=== PATIENT | male | born 1950 | race Two or more races ===

== ENCOUNTER 2017-12-07 19:30 | Emergency (ER) | payer OTHER ==
[2017-12-07 19:45] VITALS: BP 159/76; PULSE 72; TEMP 98.1; BMI 30.5
--- NOTE | 2017-12-07 19:47 | PDOC ---
Rapid Medical Evaluation Chief Complaint: Blood Pressure Problem Time Seen by Provider: 12/07/17 19:43 Medical Evaluation: 12/07/17 19:44 67 year old male with high blood pressure reading at home. patient denies any symptoms at this time other than burping. denies chest pain, diaPHORESIS, nausea , vomiting. PE: breath sounds clear, regular rate. A: high blood pressure P: EKG patient to the ER for further management of care. Discharge Disposition - Diagnosis High blood pressure Qualifiers: Hypertension type: essential hypertension Qualified Code(s): I10 - Essential ( primary) hypertension - Referrals - Patient Instructions - Post Discharge Activity
--- NOTE | 2017-12-07 19:54 | PDOC ---
History of Present Illness - General Chief Complaint: Blood Pressure Problem Stated Complaint: BLOOD PRESSURE Time Seen by Provider: 12/07/17 19:43 - History of Present Illness Initial Comments: 12/07/17 19:52 67 yo M with h/o HTN who p/w high blood pressure. Patient reports at home SBP 211 following new purchase of home/wrist BP monitoring cuff. BP typically 150's/ 80-90. Patient compliant with at home Bystolic and Lisinopril. Patient denies ALFARO, vision change, tinnitus, N/V, F,C, cough, palpitations, orthopnea, PND, leg swelling/pain, CP, SOB, urinary complaints, abdominal pain, diarrhea, constipation, lightheadedness, weakness, sensory changes. PMHx: as noted above. Denies h/o ACS/DC, stent placement, CABG, or abnml stress testing. ROS: as noted SHx: Denies Etoh, IVDA, tobacco. Allergies: NKDA Past History - Past Medical History Home Medications: Ambulatory Orders Aspirin 81 mg PO DAILY 12/07/17 Lisinopril [Prinivil -] 40 mg PO DAILY 12/07/17 Nebivolol HCl [Bystolic] 10 mg PO DAILY 12/07/17 COPD: No HTN: Yes - Suicide/Smoking/Psychosocial Hx Smoking History: Never smoked Review of Systems - Review of Systems Comments:: 12/07/17 19:52 GENERAL/CONSTITUTIONAL: No fever or chills. No weakness. HEAD, EYES, EARS, NOSE AND THROAT: No change in vision. No ear pain or discharge. No sore throat. CARDIOVASCULAR: No chest pain or shortness of breath RESPIRATORY: No cough, wheezing, or hemoptysis. GASTROINTESTINAL: No nausea, vomiting, diarrhea or constipation. GENITOURINARY: No dysuria, frequency, or change in urination. MUSCULOSKELETAL: No joint or muscle swelling or pain. No neck or back pain. SKIN: No rash NEUROLOGIC: No headache, vertigo, loss of consciousness, or change in strength/ sensation. ENDOCRINE: No increased thirst. No abnormal weight change HEMATOLOGIC/LYMPHATIC: No anemia, easy bleeding, or history of blood clots. ALLERGIC/IMMUNOLOGIC: No hives or skin allergy. *Physical Exam - Vital Signs Last Vital Signs Temp Pulse Resp BP Pulse Ox 98.1 F 72 18 159/76 96 12/07/17 19:43 12/07/17 19:43 12/07/17 19:43 12/07/17 19:43 12/07/17 19:43 - Physical Exam Comments: 12/07/17 19:52 GENERAL: Awake, alert, and fully oriented, in no acute distress HEAD: No signs of trauma, normocephalic, atraumatic EYES: PERRLA, EOMI, sclera anicteric, conjunctiva clear ENT: Auricles normal inspection, hearing grossly normal, nares patent, oropharynx clear without exudates. Moist mucosa NECK: Normal ROM, supple, no lymphadenopathy, JVD, or masses LUNGS: No distress, speaks full sentences, clear to auscultation bilaterally HEART: Regular rate and rhythm, normal S1 and S2, no murmurs, rubs or gallops, peripheral pulses normal and equal bilaterally. ABDOMEN: Soft, nontender, normoactive bowel sounds. No guarding, no rebound. No masses EXTREMITIES : Normal inspection, Normal range of motion, no edema. No clubbing or cyanosis. NEUROLOGICAL: Cranial nerves II through XII grossly intact. Normal speech, normal gait, no focal sensorimotor deficits SKIN: Warm, Dry, normal turgor, no rashes or lesions noted Medical Decision Making - Medical Decision Making 12/07/17 20:42 67 yo M with h/o HTN who p/w high blood pressure ( SBP 211) while at home. BP 159/76. VSS, AF, NAD, A&OX3. Patient currently asymptomatic with no evidence of end organ dysfunction on physical exam. Low suspicion HTN emergency/urgency, ACS /DC, pulm edema, CVA/TIA. ED Course: EKG: NSR with nml interval duration and axis. Absent DANE, STD, or TWI. 12/07/17 20:46 Patient BP improved and stable for d/c with return precautions. Advised to f/u with PMD. *DC/Admit/Observation/Transfer Diagnosis at time of Disposition: High blood pressure Qualifiers: Hypertension type: essential hypertension Qualified Code(s): I10 - Essential ( primary) hypertension - Discharge Dispostion Disposition: HOME Condition at time of disposition: Stable Decision to Admit order: No - Referrals - Patient Instructions Printed Discharge Instructions: DI for High Blood Pressure Additional Instructions: Please return to the emergency department with any new or worsening symptoms or concerns. Please follow up with your primary care physician within 72 hours. - Post Discharge Activity - Attestations Physician Attestion: 12/07/17 19:53 I attest to the information provided in this note.
--- NOTE | 2017-12-07 21:05 | PDOC ---
Attending Attestation - Resident Resident Name: Kartik Valencia - ED Attending Attestation I have performed the following: I have examined & evaluated the patient, The case was reviewed & discussed with the resident, I agree w/resident's findings & plan, Exceptions are as noted - HPI HPI: 12/07/17 21:03 Pt presents concerned about is BP since he bought a home BP cuff. Denies any chest pain or ALFARO or SOB - Physicial Exam PE: 12/07/17 21:04 Physical Exam General Appearance: Yes: Appropriately Dressed. No: Apparent Distress, Intoxicated HEENT: positive: EOMI, SANDOVAL, Normal ENT Inspection, Normal Voice, TMs Normal, Pharynx Normal. negative: Pale Conjunctivae, Photophobia, Scleral Icterus (R), Scleral Icterus (L) Neck: positive: Trachea midline, Normal Thyroid, Supple. negative: Tender, Rigid, Carotid bruit, Stridor, Lymphadenopathy (R), Lymphadenopathy (L), Thyromegaly Respiratory/Chest: positive: Lungs Clear, Normal Breath Sounds. negative: Chest Tender, Respiratory Distress, Accessory Muscle Use, Labored Respiration, RES, Crackles, Rales, Rhonchi, Stridor, Wheezing, Dullness Cardiovascular: positive: Regular Rhythm, Regular Rate, S1, S2. negative: Edema , JVD, Murmur, Bradycardia, Tachycardia Vascular Pulses: Dorsalis-Pedis (R): 2+, Doralis-Pedis (L): 2+ Gastrointestinal/Abdominal: positive: Normal Bowel Sounds, Flat, Soft. negative : Tender, Organomegaly, Pulsatile Mass, Increased Bowel Sounds, Decreased BS, Distended, Guarding, Rebound, Hernia, Hepatomegaly, Spleenomegaly Lymphatic: negative: Adenopathy, Tenderness Musculoskeletal: positive: Normal Inspection. negative: CVA Tenderness, Decreased Range of Motion Extremity: positive: Normal Capillary Refill, Normal Inspection, Normal Range of Motion, Pelvis Stable. negative: Tender, Pedal Edema, Swelling, Erythema Integumentary: positive: Normal Color, Dry, Warm. negative: Cyanotic, Erythema , Jaundice, Rash Neurologic: positive: manufacturing planner II-XII NML intact, Fully Oriented, Alert, Normal Mood/ Affect, Motor Strength 5/5. negative: EOM Palsy, Facial Droop, Sensory Deficit - Medical Decision Making 12/07/17 21:04 Pt assured that BP is good. Denies any symptoms at this time. <Jonny Merlos - Last Filed: 12/07/17 21:03> - HPI HPI: 12/07/17 21:07 The patient is a 67 year old male, with a significant past medical history of HTN, who presents to the emergency department with, high blood pressure. As per patient, he tested his blood pressure using a new at home wrist blood pressure monitoring cuff and obtained a systolic reading of 211. His normal readings are 150s/80-90. The patient is compliant with his Bystolic and Lisinopril. He denies any recent fevers, chills, headache or dizziness. He denies any recent nausea, vomit, diarrhea or constipation. He denies any recent chest pain or shortness of breath. He denies any recent dysuria, frequency, urgency or hematuria. Social History: Nonsmoker. Denies EtOH use and recreational drug use. Primary Care Physician: Dr. Semaj Ontiveros <Ronnie Hernandez - Last Filed: 12/07/17 21:08> Attestations - Attestations 12/07/17 21:08 Documentation prepared by Ronnie Hernandez, acting as registered medical transcriptionist for Jonny Merlos DO. <Ronnie Hernandez - Last Filed: 12/07/17 21:08>
--- NOTE | 2017-12-08 11:25 | EKG ---
Test Reason : Blood Pressure : / mmHG Vent. Rate : 061 BPM Atrial Rate : 061 BPM P-R Int : 202 ms QRS Dur : 086 ms QT Int : 428 ms P-R-T Axes : 037 023 034 degrees QTc Int : 430 ms NORMAL SINUS RHYTHM NORMAL ECG NO PREVIOUS ECGS AVAILABLE Confirmed by ARDEN ALEMAN, ITALIA ([id number]) on 12/08/2017 11:25:18 AM Referred By: Confirmed By:ITALIA HER MD
== END 2017-12-07 21:18 | disposition home or self-care (01) ==
LOC: JER 19:30
DX: I10 Essential (primary) hypertension (principal)
CPT/HCPCS: 93005; 93010; 99281-25

== ENCOUNTER 2017-12-10 09:14 | Emergency (ER) | payer OTHER ==
[2017-12-10 09:22] VITALS: BP 133/80; PULSE 65; TEMP 98.3; BMI 29.7
[2017-12-10] MEDS ORDERED: RANITIDINE HCL 150 MG TABLET (FP) PO ONE (09:52)
[2017-12-10] MEDS ORDERED: RANITIDINE HCL 150 MG TABLET (FP) ONE (09:53)
[2017-12-10] MEDS ORDERED: MAG HYDROX/AL HYDROX/SIMETH -MYLANTA- ORAL SUSPENSION PO ONE (09:53)
[2017-12-10] MEDS ORDERED: MAG HYDROX/AL HYDROX/SIMETH 30 ML UNIT-DOSE CUP ONE (09:58)
--- NOTE | 2017-12-10 10:01 | PDOC ---
History of Present Illness - General Chief Complaint: Foreign Body (FB) Stated Complaint: THROAT PAIN Time Seen by Provider: 12/10/17 09:47 History Source: Patient Exam Limitations: No Limitations - History of Present Illness Initial Comments: 12/10/17 10:01 67 yr male history of HTN presents with "lump in throat" after swallowing piece of bananna. Pt has had this for 3 weeks has apt with GI December 27. Pt states he feels like food gets stuck in throat. No vomiting , pt able to drink water no pain with swallowing, notes increased belching and foul taste in mouth for 3 weeks. no abd pain no weight loss or changes in bowel habits. Pt has a PMD he has not yet consulted. Past History - Travel Traveled outside of the country in the last 30 days: No Close contact w/someone who was outside of country & ill: No - Past Medical History Allergies/Adverse Reactions: Allergies Allergy/AdvReac Type Severity Reaction Status Date / Time No Known Allergies Allergy Verified 12/10/17 09:19 Home Medications: Ambulatory Orders Aspirin 81 mg PO DAILY 12/07/17 Lisinopril [Prinivil -] 40 mg PO DAILY 12/07/17 Nebivolol HCl [Bystolic] 10 mg PO DAILY 12/07/17 COPD: No HTN: Yes - Suicide/Smoking/Psychosocial Hx Smoking History: Never smoked Respiratory Specific PMHX - Complaint Specific PMHX Angina: No Bronchitis: No Pneumonia: No Pulmonary Embolus: No TB (Tuberculosis): No Review of Systems - Review of Systems Able to Perform ROS?: Yes Is the patient limited Belgian proficient: No Constitutional: No: Symptoms Reported HEENTM: No: Symptoms Reported Respiratory: No: Symptoms reported Cardiac (ROS): No: Symptoms Reported ABD/GI: No: Symptoms Reported : No: Symptoms Reported Musculoskeletal: No: Symptoms Reported Integumentary: No: Symptoms Reported Neurological: No: Symptoms reported *Physical Exam - Vital Signs Last Vital Signs Temp Pulse Resp BP Pulse Ox 98.3 F 65 18 133/80 99 12/10/17 09:16 12/10/17 09:16 12/10/17 09:16 12/10/17 09:16 12/10/17 09:16 - Physical Exam General Appearance: Yes: Nourished, Appropriately Dressed HEENT: positive: EOMI, SANDOVAL, Normal ENT Inspection, TMs Normal, Pharynx Normal, Other (uvula midline no edema ). negative: Pharyngeal Erythema, Tonsillar Exudate, Tonsillar Erythema, Nasal Congestion Neck: positive: Normal Thyroid, Supple. negative: Decreased range of motion, Stridor, Tender lateral, Tender midline Respiratory/Chest: positive: Lungs Clear, Normal Breath Sounds. negative: Chest Tender Cardiovascular: positive: Regular Rhythm, Regular Rate Gastrointestinal/Abdominal: positive: Normal Bowel Sounds, Soft. negative: Tender Musculoskeletal: positive: Normal Inspection Extremity: positive: Normal Capillary Refill, Normal Inspection, Normal Range of Motion ED Treatment Course - RADIOLOGY Radiology Studies Ordered: Category Date Time Status NECK SOFT TISSUE [RAD] Stat Radiology 12/10/17 09:52 Ordered - Medications Given in the ED: ED Medications Discontinued Medications Generic Name Dose Route Start Last Admin Trade Name Freq PRN Reason Stop Dose Admin Ranitidine HCl 150 mg 12/10/17 09:52 12/10/17 09:53 Zantac - PO 12/10/17 09:53 150 mg ONCE ONE Administration Medical Decision Making - Medical Decision Making 12/10/17 10:04 cc: feels like bananna is stuck however pt is able to swallow water no vomiting or pain will give zantac, maalox, soft tissue neck pt has apt with GI he is trying to make it sooner pt has not tried gas x with no relief of belching *DC/Admit/Observation/Transfer Diagnosis at time of Disposition: Difficulty swallowing solids - Discharge Dispostion Disposition: HOME Condition at time of disposition: Good - Referrals Referrals: Semaj Ontiveros MD [Primary Care Provider] - - Patient Instructions Additional Instructions: please follow with your primary care this week please follow with the pet ambassador as planned make sure your food is cut or chewed in small bites always drink some water after bites of food you can try pepcid or zantac over the counter avoid spicy foods, alcohol, chocolate as this can make symptoms worse - Post Discharge Activity
== END 2017-12-10 10:40 | disposition home or self-care (01) ==
LOC: JERFT 09:14 → JER 09:14 → JERFT 10:40
DX: R13.19 Other dysphagia (principal); I10 Essential (primary) hypertension; Z79.82 Long term (current) use of aspirin
CPT/HCPCS: 70360-TC-FY; 99281-25

== ENCOUNTER 2018-11-24 14:59 | Emergency (ER) | payer OTHER ==
[2018-11-24 15:20] VITALS: TEMP 98; BMI 29.7
[2018-11-24 16:12] LABS: BASO % 0.6 % (0-2.0); EOS % 2.4 % (0-4.5); HEMATOCRIT 41.3 % (35.4-49); HEMOGLOBIN 14.2 GM/dL (11.7-16.9); LYMPH % 20.3 % (8-40); MCH 29.8 pg (25.7-33.7); MCHC 34.4 g/dl (32.0-35.9); MEAN CELL VOLUME 86.5 fl (80-96); MEAN PLT VOLUME 9.5 fl (7.5-11.1); MONO % 5.2 % (3.8-10.2); NEUT % 71.5 % (42.8-82.8); PLATELET COUNT 203 K/MM3 (134-434); RBC 4.77 M/mm3 (4.00-5.60); RDW 13.1 % (11.9-15.9); WHITE BLOOD COUNT 9.2 K/mm3 (4.0-10.0)
[2018-11-24] MEDS ORDERED: SODIUM CHLORIDE 0.9% 500 ML INFUS.BAG IV ONE (16:13)
[2018-11-24] MEDS ORDERED: DIPHTH,PERTUSS(ACELL),TET 0.5 ML DISP.SYRIN IM ONE ×2 (16:22→16:42)
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
[2018-11-24 16:27] LABS: INR 0.97 (0.83-1.09); PROTHROMBIN TIME (PATIENT) 11.4 SEC (9.7-13.0)
[2018-11-24 16:30] LABS: ACTIVATED PTT 25.5 SECONDS (25.2-36.5)
[2018-11-24 16:32] LABS: ALBUMIN 3.9 g/dl (3.4-5.0); ALK PHOS 133 U/L (45-117); ANION GAP 10 MMOL/L (8-16); BILIRUBIN,TOTAL 0.5 mg/dL (0.2-1); BLOOD UREA NITROGEN 21.7 mg/dL (7-18); CALCIUM 8.8 mg/dL (8.5-10.1); CHLORIDE 106 mmol/L (98-107); CO2 24 mmol/L (21-32); CREATININE 1.2 mg/dL (0.55-1.3); GLUCOSE,RANDOM 158 mg/dL (74-106); PHOSPHOROUS 2.5 mg/dL (2.5-4.9); POTASSIUM 3.8 mmol/L (3.5-5.1); SGOT/AST 22 U/L (15-37); SGPT/ALT 26 U/L (13-61); SODIUM 140 mmol/L (136-145); TOT PROT 7.4 g/dl (6.4-8.2)
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
[2018-11-24] MEDS ORDERED: BACITRACIN 0.9 GM PACKET ONE (17:53)
[2018-11-24] MEDS ORDERED: LIDOCAINE 1%/EPI 1:100000 (20 ML MULTI DOSE VIAL) ONE (17:53)
[2018-11-24] MEDS ORDERED: LIDOCAINE 1%/EPI 1:100000 (20 ML MULTI DOSE VIAL) INF ONE (17:54)
[2018-11-24 18:31] LABS: COCAINE, UR NEGATIVE ng/ml (CUTOFF=300); METHADONE, UR NEGATIVE ng/ml (CUTOFF=300); OPIATES, URI NEGATIVE ng/ml (CUTOFF=300); PHENCYCLIDINE,URINE NEGATIVE ng/ml (CUTOFF=25); URINE AMPHETAMINES NEGATIVE ng/ml (CUTOFF=500); URINE BARBITURATES NEGATIVE ng/ml (CUTOFF=200); URINE BENZODIAZEPINES NEGATIVE ng/ml (CUTOFF=200)
[2018-11-24 18:44] LABS: URINE APPEARANCE CLEAR; URINE BILIRUBIN NEGATIVE (NEGATIVE); URINE COLOR YELLOW; URINE GLUCOSE (UA) NEGATIVE (NEGATIVE)
[2018-11-24 18:45] LABS: PH,URINE 5.5 (5.0-8.0); URINE KETONE TRACE (NEGATIVE); URINE NITRITE NEGATIVE (NEGATIVE); URINE PROTEIN TRACE (NEGATIVE); URINE UROBILINOGEN 0.2 mg/dL (0.2-1.0)
[2018-11-24 18:46] VITALS: BP 154/78; PULSE 72
[2018-11-24 18:46] LABS: URINE LEUK ESTERASE NEGATIVE (NEGATIVE)
[2018-11-24 18:54] LABS: EPI CELLS 1 /HPF (0-5/HPF); HYALINE CASTS 4 /lpf (0-8); URINE BACTERIA 0.7 /hpf (NEGATIVE); URINE RBC 2 /hpf (0-4); URINE WBC 1 /hpf (0-5)
--- NOTE | 2018-11-25 08:53 | EKG ---
Test Reason : Blood Pressure : / mmHG Vent. Rate : 078 BPM Atrial Rate : 078 BPM P-R Int : 192 ms QRS Dur : 082 ms QT Int : 408 ms P-R-T Axes : 029 022 025 degrees QTc Int : 465 ms POOR DATA QUALITY, INTERPRETATION MAY BE ADVERSELY AFFECTED NORMAL SINUS RHYTHM NORMAL ECG WHEN COMPARED WITH ECG OF 07-DEC-2017 19:52, NO SIGNIFICANT CHANGE WAS FOUND Confirmed by ARDEN ALEMAN, [place] ([id number]) on 11/25/2018 8:52:59 AM Referred By: Confirmed By:ITALIA HER MD
== END 2018-11-24 18:47 | disposition home or self-care (01) ==
LOC: JER 14:59
PROC: 0HQ1XZZ Repair Face Skin, External Approach (ICD-10-PCS; principal; 2018-11-24)
PROC: 3E0234Z Introduction of Serum, Toxoid and Vaccine into Muscle, Percutaneous Approach (ICD-10-PCS; 2018-11-24)
PROC: 3E0337Z Introduction of Electrolytic and Water Balance Substance into Peripheral Vein, Percutaneous Approach (ICD-10-PCS; 2018-11-24)
PROC: BW40ZZZ Ultrasonography of Abdomen (ICD-10-PCS; 2018-11-24)
PROC: B246ZZZ Ultrasonography of Right and Left Heart (ICD-10-PCS; 2018-11-24)
DX: S01.81XA Laceration without foreign body of other part of head, initial encounter (principal); V47.5XXA Car driver injured in collision with fixed or stationary object in traffic accident, initial encounter; W22.11XA Striking against or struck by driver side automobile airbag, initial encounter; Y92.414 Local residential or business street as the place of occurrence of the external cause; Y93.89 Activity, other specified; Y99.8 Other external cause status
CPT/HCPCS: 36415; 70450-TC; 71045-TC-FY; 72125-TC; 73090-TC-LT-FY; 74177-TC; 76604; 76705-TC; 80053; 80307; 81003; 82550; 82553; 83735; 84100; 84484; 85025; 85610; 85730; 86850; 86900; 86901; 87086; 90715; 93005; 93010; 93308; 99284-25

== ENCOUNTER 2018-12-03 10:33 | Emergency (ER) | payer OTHER ==
[2018-12-03 10:38] VITALS: BP 164/78; PULSE 63; TEMP 98; BMI 29.7
--- NOTE | 2018-12-03 11:11 | PDOC ---
History of Present Illness - General Chief Complaint: Suture/Staple Removal(Here) Stated Complaint: STAPLE REMOVAL Time Seen by Provider: 12/03/18 10:48 - History of Present Illness Initial Comments: 12/03/18 11:09 68-year-old male with presents for evaluation of staple removal right temporal scalp Past History - Past Medical History Allergies/Adverse Reactions: Allergies Allergy/AdvReac Type Severity Reaction Status Date / Time No Known Allergies Allergy Verified 12/03/18 10:35 Home Medications: Ambulatory Orders Nebivolol HCl [Bystolic] 20 mg PO DAILY 12/07/17 COPD: No HTN: Yes - Immunization History Immunization Up to Date: Yes - Suicide/Smoking/Psychosocial Hx Smoking History: Never smoked Hx Alcohol Use: No Drug/Substance Use Hx: No Review of Systems - Review of Systems Constitutional: Yes: See HPI *Physical Exam - Vital Signs Last Vital Signs Temp Pulse Resp BP Pulse Ox 98.0 F 63 18 164/78 96 12/03/18 10:35 12/03/18 10:35 12/03/18 10:35 12/03/18 10:35 12/03/18 10:35 - Physical Exam Comments: 12/03/18 11:09 Right temporal scalp is healing well [address] normal skin color and temperature Medical Decision Making - Medical Decision Making 12/03/18 11:10 5 shay were removed without complication from the right temporal scalp *DC/Admit/Observation/Transfer Diagnosis at time of Disposition: Removal of shay - Discharge Dispostion Disposition: HOME Condition at time of disposition: Stable Decision to Admit order: No - Referrals - Patient Instructions Additional Instructions: Keep the area clean and dry for the next 48 hours. Return to the emergency room for worsening symptoms. Follow-up with her primary care physician without fail in 2-3 days for wound check. After 48 hours may use normal soap and water and leave the area open to air do not scrub the area. - Post Discharge Activity
== END 2018-12-03 11:29 | disposition home or self-care (01) ==
LOC: JERFT 10:33
DX: Z48.02 Encounter for removal of sutures (principal)
CPT/HCPCS: 99281-25

== ENCOUNTER 2020-01-15 04:44 | Day surgery (SDC) | payer OTHER ==
[2020-01-14 11:25] VITALS: BMI 28.1
[~2020-01-15 04:44] MED LIST: BUPIVACAINE HCL/PF 0.5% (5 MG/ML) 30 ML VIAL IJ ONE
[2020-01-15] MEDS ORDERED: LIDOCAINE HCL 1% EPINEPHRINE 1:200,000 30 ML VIAL (PF) ONE (07:25)
[2020-01-15] MEDS ORDERED: EPHEDRINE SULFATE/0.9% NACL/PF 50 MG/10 ML SYRINGE NR ONE (07:37)
[2020-01-15] MEDS ORDERED: PROPOFOL 20 ML ONE ×2 (07:37)
[2020-01-15] MEDS ORDERED: MIDAZOLAM HCL 2 MG/2 ML SINGLE DOSE VIAL ONE (07:38)
--- NOTE | 2020-01-15 07:40 | HP ---
[facility] - Chief Complaint Chief Complaint: right knee pain - Past Medical History Allergies/Adverse Reactions: Allergies Allergy/AdvReac Type Severity Reaction Status Date / Time No Known Allergies Allergy Verified 01/15/20 06:23 - Current Medications Current Medications: Home Medications Medication Instructions Recorded Nebivolol HCl [Bystolic] 20 mg PO DAILY 12/07/17 Oxycodone HCl/Acetaminophen 1 tab PO Q6H #12 tablet MDD 4 01/15/20 [Percocet 5-325 mg Tablet] [facility] Physical Exam - Physical Examination Vital Signs: Vital Signs Period Temp Pulse Resp BP Sys/Triana Pulse Ox Last 24 Hr 98.2 F 60 16 153/75 99 General Appearance: Well Nourished, Well Developed, Alert & Oriented x3 ENT: Clear Lung: Normal air movement Extremities: Other (right knee- +Swelling, + ttp , dec rom, + mcmuurays, nvi) Neurological: Intact, Alert, Oriented [facility]ellite Impression/Plan - Impression/Plan Impression: right knee internal derangement Operative Procedure: right knee arthroscopy Date to be Performed: 01/15/20
[2020-01-15] MEDS ORDERED: BUPIVACAINE HCL/PF 0.5% (5 MG/ML) 30 ML VIAL IJ ONE (08:42)
[2020-01-15] MEDS ORDERED: oxyCODONE HCL 5 MG TABLET PO PRN ×2 (09:00)
[2020-01-15] MEDS ORDERED: ONDANSETRON 4 MG/2 ML VIAL IVPUSH PRN (09:00)
[2020-01-15] MEDS ORDERED: LACTATED RINGERS SOLUTION 1,000 ML IV SCH (09:00)
--- NOTE | 2020-01-15 09:03 | OP ---
Operative Note - Note: Operative Date: 01/15/20 Pre-Operative Diagnosis: internal derangement right knee Operation: arthroscopy right knee with partial MM, excision of loose body, chondroplasty trochlea Post-Operative Diagnosis: Same as Pre-op Anesthesia: Spinal Estimated Blood Loss (mls): 0 Operative Report Dictated: Yes
--- NOTE | 2020-01-15 10:47 | OP ---
DATE OF OPERATION: 01/15/2020 PREOPERATIVE DIAGNOSIS: Internal derangement, right knee. POSTOPERATIVE DIAGNOSIS: Internal derangement, right knee. PROCEDURE: Arthroscopy right knee with partial medial meniscectomy, chondroplasty of the trochlea and excision of loose body. SURGICAL ATTENDING: Eduardo Barnard MD ANESTHESIA: Spinal. CLOSURE: Nylon 4-0. COMPLICATION: None. CONDITION: Recovery room in stable condition. DESCRIPTION OF PROCEDURE: Patient was taken to the operating room on January 15, 2020. Spinal anesthesia was administered by the anesthesiologist. Right lower extremity was prepped and draped in the usual sterile fashion. The medial and lateral infrapatellar portal sites were infiltrated with 1% Xylocaine with epinephrine. Both portals were then made with a 15-blade followed by blunt trocar. Scope was placed in the lateral patella portal up into the suprapatellar pouch. The knee was then inflated with a cocktail of 10 mL of 1% Xylocaine, 10 mL of 0.5% Marcaine and 20 mL of arthroscopic saline. After allowing the anesthetic to work, the procedure was performed. The pouch was visualized to be clean. The medial and lateral gutters were visualized to be clean. The undersurface of the patella was found to be intact. The trochlea itself had extensive grade 4 changes. Any loose articular cartilage at its margins was debrided using the shaver. With valgus stress on the knee, the medial compartment was entered. The medial meniscus was visualized, probed, found to have a complex of its posterior horn. This was debrided back to smooth and stable meniscal tissue using a meniscal biter and arthroscopic shaver. The medial femoral condyle was run and found to be basically intact as was the medial tibial plateau. At 90 degrees the ACL was visualized and probed, found to be intact. However, there was an osteochondral loose body that was attached to the soft tissue in the notch. This was debrided by using the shaver and then eventually a straight Arnoldo to remove that loose body. In a figure 4 position the lateral compartment was entered. The lateral meniscus was visualized, probed, found to be intact. Lateral femoral condyle was run, found to be intact as was the lateral tibial plateau. The knee was irrigated with copious amount of irrigation. The portals were closed using 4-0 nylon. Prior to pulling the trocar 20 mL of 0.5% Marcaine were infused into the knee for postoperative analgesia. A sterile pressure dressing was placed over the knee. Patient awakened from anesthesia and transferred to recovery room in stable condition. No complications. Estimated blood loss negligible. Dixon [id number]
[2020-01-15 11:50] VITALS: BP 141/75; PULSE 50; TEMP 97.3
--- NOTE | 2020-01-16 14:45 | PATH ---
Surgical Pathology Report Patient Name: ACE KNOTT Med. Rec. #: [id number] /Age/Gender: 1950 (Age: 69) / M Account: [id number] Location: [facility] Taken: 01/15/2020 Received: 01/15/2020 Reported: 01/16/2020 Physicians: Eduardo Barnard M.D. Specimen(s) Received RIGHT KNEE SHAVINGS Clinical History Right knee tear Final Diagnosis RIGHT KNEE SHAVINGS: SYNOVIAL TISSUE WITH REACTIVE CHANGE. FIBROCARTILAGINOUS TISSUE WITH CHONDROCALCINOSIS. Electronically Signed Bautista Mcgarry M.D. Gross Description Received in formalin, labeled "right knee shavings," is a 4.0 x 2.5 x 0.4 cm. aggregate of simmons-yellow soft tissue fragments. A surgical sales representative portion is submitted in one cassette. /01/15/2020 saudi/01/15/2020
== END 2020-01-15 16:00 | disposition home or self-care (01) ==
LOC: JASU-SURG 04:44
PROVIDERS: ATTEND Orthopaedic Surgery
PROC: 0SCC4ZZ Extirpation of Matter from Right Knee Joint, Percutaneous Endoscopic Approach (ICD-10-PCS; 2020-01-15)
PROC: 0SBC4ZZ Excision of Right Knee Joint, Percutaneous Endoscopic Approach (ICD-10-PCS; principal; 2020-01-15 08:00)
DX: M23.221 Derangement of posterior horn of medial meniscus due to old tear or injury, right knee (principal)
CPT/HCPCS: 29881; G0289; 88304-TC; 94760